=== PATIENT | female | born 1945 | race Two or more races ===

== ENCOUNTER 2022-04-30 08:13 | Outpatient (CLI) | payer OTHER | END 2022-04-30 08:16 | disposition home or self-care (01) | LOC: SONOGRAMA 08:13 | PROVIDERS: ATTEND Pathology Anatomic Pathology | DX: D34 Benign neoplasm of thyroid gland (principal); E04.1 Nontoxic single thyroid nodule; E06.9 Thyroiditis, unspecified ==